=== PATIENT | male | born 1935 | race Hispanic/Latino ===

== ENCOUNTER → 2019-05-14 | Outpatient (CLI) | payer OTHER | END | disposition home or self-care (01) | LOC: SHCH 10:46 | PROVIDERS: ATTEND Internal Medicine Cardiovascular Disease | DX: M79.604 Pain in right leg (principal); M79.605 Pain in left leg | CPT/HCPCS: 93925 ==

== ENCOUNTER 2019-06-05 06:14 | Day surgery (SDC) | payer OTHER ==
[2019-06-04 12:26] VITALS: BP 155/67
[2019-06-04 12:29] LABS: BASOPHILS % (AUTO) 0.9 % (0.0-5.0); EOSINOPHILS % (AUTO) 1.8 % (0.0-8.0); HEMATOCRIT 38.1 % (42-54); LYMPHOCYTES % (AUTO) 34.7 % (21.0-51.0); MEAN CORPUSCULAR HGB CONC 34.4 g/dL (32.0-36.0); MEAN CORPUSCULAR VOLUME 95.9 fL (79-99); MONOCYTES % (AUTO) 8.7 % (3.0-13.0); NEUTROPHILS % (AUTO) 53.9 % (40.0-77.0); NUCLEATED RED BLOOD CELLS 0.2 % (0.0-0.19); PLATELET COUNT (AUTO) 189 K/uL (130-400); RED BLOOD CELL COUNT(AUTO) 3.98 MIL/uL (4.50-6.20); RED CELL DISTRIBUTION WIDTH 14.4 % (11.0-15.5); WHITE BLOOD COUNT (AUTO) 5.6 K/uL (4.8-10.8)
[2019-06-04 12:41] LABS: INR 1.01 (0.85-1.15); PROTHROMBIN TIME 10.6 SEC (9.6-11.6)
[2019-06-04 12:42] LABS: CREATININE 1.2 mg/dL (0.5-1.5); POTASSIUM 4.2 mmol/L (3.5-5.1)
--- NOTE | 2019-06-04 13:19 | NUR ---
SPOKE WITH CECELIA GARCIA AND HE IS AWARE OF PT. ABNORMAL LABS. NO NEW ORDERS AT THIS TIME. CONTINUE WITH PROCEDURE.
[~2019-06-05] VITALS: Ht 177.8 cm; Wt 99.3 kg
[2019-06-05] VITALS (9 sets, daily range): BP systolic 120–151; BP diastolic 60–71
[~2019-06-05 06:14] MED LIST: AMLO5TAB9 PO; ASPI-555 PO; ATOR40TA71 PO; CARV6.25 PO; MULT-1258 PO; TAMS-1 PO
[2019-06-05] MEDS ORDERED: SODIUM CHLORIDE 0.9% 1000ML 1,000 ML IV ONE (06:26)
[2019-06-05] MEDS ORDERED: BUPIVACAINE/PF 0.25% 30ML VIAL IJ ONE (07:45)
[2019-06-05] MEDS ORDERED: CEFAZOLIN SODIUM 1 GM VIAL ONE (07:46)
[2019-06-05] MEDS ORDERED: LIDOCAINE HCL 1% MDV 50ML VIAL ONE (07:46)
[2019-06-05] MEDS ORDERED: MIDAZOLAM HCL 1 MG/ML 2ML VIAL ONE (08:07)
[2019-06-05] MEDS ORDERED: FENTANYL CITRATE PF 50 MCG/1 ML 2ML VIAL ONE (08:07)
[2019-06-05] MEDS ORDERED: ACETAMINOPHEN 325 MG TAB PO PRN ×2 (09:00)
--- NOTE | 2019-06-05 09:15 | NUR ---
PT IS RESTING COMFORTABLE NO, PAIN DRESSING DRY AND INTACT, RADIAL PULSES PRESENT.
--- NOTE | 2019-06-05 09:30 | NUR ---
DRESSING DRY AND INTACT NO COMPLICATION WILL CONTINUE TO MONITOR PATIENT.
--- NOTE | 2019-06-05 09:45 | NUR ---
PT IS SITTING IN BED EATING BREAKFAST, NO COMPLICATIONS, DRESSING IS DRY AND INTACT, WILL CONTINUE TO MONITOR
--- NOTE | 2019-06-05 10:00 | NUR ---
PT WATCHING TV WITH AT BEDSIDE, PT. STABLE NO COMPLICATION, DRESSING DRY AND INTACT, PULSES PRESENT TO BILATERAL RADIALS.
--- NOTE | 2019-06-05 10:30 | NUR ---
PT UP TO VOID X 1 DRESSING DRY AND INTACT NO COMPLICATIONS AND STABLE AT THIS TIME. WILL CONTINUE TO MONITOR
--- NOTE | 2019-06-05 11:00 | NUR ---
PT RESTING COMFORTABLY WITH AT BEDSIDE DRESSING DRY AND INTACT, PT. STABLE RADIAL PULSES PRESENT, WILL CONTINUE TO MONITOR
--- NOTE | 2019-06-05 12:00 | NUR ---
PT WATCHING TV WITH AT BEDSIDE NO COMPILATIONS AND IS STABLE, DRESSING DRY AND INTACT, WILL CONTINUE TO MONITOR PT.
--- NOTE | 2019-06-05 13:00 | NUR ---
PT. UP AND GETTING DRESSED, DRESSING IS DRY AND INTACT, STABLE WITHOUT COMPLICATIONS
--- NOTE | 2019-06-05 13:15 | NUR ---
PT LEFT VIA WHEEL CHAIR IN PVT CAR WITH . RX SCRIPT GIVEN TO WITH D/C INSTRUCTION. NO COMPLICATIONS UPON D/C. DRESSING IS DRY AND INTACT AND PULSES PRESENT TO RADIALS.
== END 2019-06-05 13:17 | disposition home or self-care (01) ==
LOC: DAH 06:14
PROVIDERS: ATTEND Internal Medicine Cardiovascular Disease
DX: R00.1 Bradycardia, unspecified (principal); I25.810 Atherosclerosis of coronary artery bypass graft(s) without angina pectoris; I12.9 Hypertensive chronic kidney disease with stage 1 through stage 4 chronic kidney disease, or unspecified chronic kidney disease; N18.3 Chronic kidney disease, stage 3 (moderate); E78.5 Hyperlipidemia, unspecified; Z79.82 Long term (current) use of aspirin; Z79.01 Long term (current) use of anticoagulants; Z79.899 Other long term (current) drug therapy
CPT/HCPCS: 33228; 36415; 80048; 85025; 85610; 85730; 93005; A4215; A4216; A4221; A4222; A4223 ×3; A4606; A4663; C1785; J0690; J2250; J3010; J3490 ×2; J7030; 99156; 99157

== ENCOUNTER 2021-08-17 07:37 | Observation (INO) | payer OTHER ==
[2021-08-12 11:56] LABS: BASOPHILS % (AUTO) 0.7 % (0.0-5.0); EOSINOPHILS % (AUTO) 2.8 % (0.0-8.0); HEMATOCRIT 36.4 % (42-54); LYMPHOCYTES % (AUTO) 35.1 % (21.0-51.0); MEAN CORPUSCULAR HEMOGLOBIN 30.1 pg (27.0-33.0); MEAN CORPUSCULAR VOLUME 91.2 fL (79-99); NEUTROPHILS % (AUTO) 53.1 % (40.0-77.0); PLATELET COUNT (AUTO) 162 K/uL (130-400); RED BLOOD CELL COUNT(AUTO) 3.99 MIL/uL (4.50-6.20); RED CELL DISTRIBUTION WIDTH 14.3 % (11.0-15.5); WHITE BLOOD COUNT (AUTO) 6.8 K/uL (4.8-10.8)
[2021-08-12 12:04] LABS: CREATININE 1.6 mg/dL (0.5-1.5); POTASSIUM 4.7 mmol/L (3.5-5.1)
[2021-08-12 12:13] LABS: INR 1.78 (0.85-1.15); PROTHROMBIN TIME 18.4 SEC (9.6-11.6)
[2021-08-12 12:14] LABS: PARTIAL THROMBOPLASTIN TIME 48.7 SEC (26.3-35.5)
[2021-08-14 09:55] VITALS: BP 111/64
[~2021-08-17] VITALS: Ht 177.8 cm; Wt 85.4 kg
[2021-08-17] VITALS (11 sets, daily range): BP systolic 119–140; BP diastolic 65–82
[~2021-08-17 07:37] MED LIST changes: -AMLO5TAB9 PO; -ASPI-555 PO; +ASPI-556 PO; -CARV6.25 PO; +FOLI1TAB85 PO; +FURO40TA5 PO; +METO-408 PO; +POTASSIUM PO; +RIVA15TA PO
[2021-08-17] MEDS ORDERED: CEFAZOLIN SODIUM 1 GM VIAL ONE (08:49)
[2021-08-17] MEDS ORDERED: BUPIVACAINE/PF 0.25% 30ML VIAL IJ ONE (08:49)
[2021-08-17] MEDS ORDERED: MEPERIDINE-PF 50 MG/ML SYG ONE (08:50)
[2021-08-17] MEDS ORDERED: 0.9%NACL 1000ML 1,000 ML IV ONE (08:50)
[2021-08-17] MEDS ORDERED: LIDOCAINE HCL 1% MDV 50ML VIAL ONE (08:50)
[2021-08-17] MEDS ORDERED: MIDAZOLAM HCL 1 MG/ML 2ML VIAL ONE ×3 (08:50→10:28)
[2021-08-17] MEDS ORDERED: FENTANYL CITRATE PF 50 MCG/1 ML 2ML VIAL ONE (08:50)
[2021-08-17] MEDS ORDERED: IODIXANOL 320 MG/ML 100 ML VIAL ONE ×2 (08:51→09:20)
[2021-08-17] MEDS ORDERED: DiphenhydrAMINE HCL 50 MG/ML VIAL ONE (09:50)
[2021-08-17] MEDS ORDERED: MEPERIDINE-PF 25 MG/ML SYG ONE (10:29)
[2021-08-17] MEDS ORDERED: ACETAMINOPHEN WITH CODEINE 1 TAB TAB PO PRN (11:30)
[2021-08-17] MEDS: DRONEDARONE HYDROCHLORIDE 400 MG TABLET PO SCH ×2 (13:23→22:32)
[2021-08-17] MEDS ORDERED: ATORVASTATIN 40 MG TABLET PO SCH (21:00)
[2021-08-18 00:36] VITALS: BP 128/71
[2021-08-18 04:24] LABS: CREATININE 1.3 mg/dL (0.5-1.5); POTASSIUM 4.6 mmol/L (3.5-5.1)
[2021-08-18 04:32] VITALS: BP 131/64
[2021-08-18 08:00] VITALS: BP 135/79
[2021-08-18] MEDS: DRONEDARONE HYDROCHLORIDE 400 MG TABLET PO SCH (08:27)
[2021-08-18] MEDS ORDERED: FUROSEMIDE 40 MG TABLET PO SCH (09:00)
[2021-08-18] MEDS ORDERED: ASPIRIN 81 MG EC TAB PO SCH (09:00)
[2021-08-18] MEDS ORDERED: TAMSULOSIN HCL 0.4 MG CAP.ER.24H PO SCH (09:00)
[2021-08-18] MEDS ORDERED: DRON400T7 PO (09:30)
[2021-08-18 12:00] VITALS: BP 123/67
== END 2021-08-18 12:15 | disposition home or self-care (01) ==
LOC: DAH 07:37 → DAHIP 07:38 → DAH 07:38 → 4DH 14:31
PROVIDERS: ADMIT Internal Medicine; ATTEND Internal Medicine
DX: I13.0 Hypertensive heart and chronic kidney disease with heart failure and stage 1 through stage 4 chronic kidney disease, or unspecified chronic kidney disease (principal); I50.22 Chronic systolic (congestive) heart failure; N18.30 Chronic kidney disease, stage 3 unspecified; I49.5 Sick sinus syndrome; I48.0 Paroxysmal atrial fibrillation; Z20.822 Contact with and (suspected) exposure to COVID-19; Z45.02 Encounter for adjustment and management of automatic implantable cardiac defibrillator; I25.10 Atherosclerotic heart disease of native coronary artery without angina pectoris; E78.5 Hyperlipidemia, unspecified; N40.0 Benign prostatic hyperplasia without lower urinary tract symptoms; Z79.01 Long term (current) use of anticoagulants; Z95.1 Presence of aortocoronary bypass graft; Z79.899 Other long term (current) drug therapy
CPT/HCPCS: 33225; 33233; 33249; 36415 ×2; 71045; 80048 ×2; 85025; 85610; 85730; 93005; A4215; A4216; A4221; A4222; A4223 ×3; A4606; A4663; C1769; C1882; C1895; C1900; G0378 ×24; J0690; J1200; J2175 ×2; J2250 ×3; J3490 ×2; J7030; Q9967 ×2; 99156; 99157; J3010